=== PATIENT | male | born 2000 | race Hispanic/Latino ===

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

== ENCOUNTER 2020-02-16 19:10 | Emergency (ER) | payer SELFPAY ==
[2020-02-16] MEDS ORDERED: Proparacaine 0.5% Opth 15 ML BOT ONE (19:24)
[2020-02-16] MEDS ORDERED: Fluorescein Opthalmic Strip ONE (19:24)
[2020-02-16] MEDS ORDERED: Ketorolac Tromethamine 30 MG/ML VIAL ONE (19:47)
== END 2020-02-16 20:00 | disposition home or self-care (01) ==
LOC: ERS 19:10
DX: S05.02XA Injury of conjunctiva and corneal abrasion without foreign body, left eye, initial encounter (principal); W22.8XXA Striking against or struck by other objects, initial encounter
CPT/HCPCS: 96372; 99283; J1885

== ENCOUNTER 2021-05-16 09:54 | Emergency (ER) | payer SELFPAY | END 2021-05-16 11:35 | disposition home or self-care (01) | LOC: ERS 09:54 | DX: M54.42 Lumbago with sciatica, left side (principal) | CPT/HCPCS: 99283 ==